=== PATIENT | female | born 1960 | race Caucasian/White ===

== ENCOUNTER → 2017-06-12 | Outpatient (CLI) | payer OTHER | END | disposition home or self-care (01) | LOC: C.LABMFLN 12:26 | PROVIDERS: ATTEND Family Medicine | DX: N39.0 Urinary tract infection, site not specified (principal) ==

== ENCOUNTER → 2017-11-09 | Outpatient (CLI) | payer OTHER ==
[~2017-11-09] MED LIST: ADVIN25/60 INH; ATV/1 PO; BUPRTAB51 PO; CHN/1 PO; DOXY100C76 PO; ESTR10TA3 PV; FLUC150T PO; FURO80TA63 PO; GABA-1220 PO; INSDGIPEN SC; MECL1TAB42 PO; METO100T44 PO; METO5TAB25 PO; OXYC-594 PO; PRVHFAIN INH; QUET1TAB34 PO; SERT-234 PO; SULF800T23 PO; TRAM-10 PO; TRAZ100T29 PO; ULT50X PO; UMEC1INH INH
[2017-11-09 17:46] LABS: BASO % 0.6 %; BASO ABS # 0.08 K/uL (0-0.2); EOS % 2.3 %; EOS ABS # 0.32 K/uL (0-0.5); HEMATOCRIT 44.8 % (37-47); HEMOGLOBIN 13.9 g/dL (12.0-16.0); IG# 0.17 K/uL (0.00-0.02); LYMPH % 22.9 %; MEAN CELL VOLUME 91.1 fL (80-100); MEAN CORPUSCULAR HEMOGLOBIN 28.3 pg (25-34); MEAN PLATELET VOLUME 11.1 fL (7.4-10.4); MONO % 5.9 %; MONO ABS # 0.82 K/uL (0.11-0.59); NEUT % 67.1 %; NEUT ABS # 9.38 K/uL (1.4-6.5); NUCLEATED RED BLOOD CELL ABS 0.02 K/uL (0-0); PLATELET COUNT 481 K/uL (130-400); RED CELL DISTRIBUTION WIDTH CV 15.2 % (11.5-14.5); RED CELL DISTRIBUTION WIDTH SD 50.6 fL (36.4-46.3); WHITE BLOOD COUNT 13.97 K/uL (4.8-10.8)
[2017-11-09 17:59] LABS: PTT PATIENT 25.2 SECONDS (21.0-31.0)
[2017-11-09 18:04] LABS: BLOOD UREA NITROGEN 26 mg/dl (7-18); CALCIUM 9.3 mg/dl (8.5-10.1); CARBON DIOXIDE 37 mmol/L (21-32); CREATININE 1.16 mg/dl (0.60-1.20); GLUCOSE 167 mg/dl (70-99); POTASSIUM 4.2 mmol/L (3.5-5.1); SODIUM 133 mmol/L (136-145)
== END | disposition home or self-care (01) ==
LOC: C.LABMFLN 09:54
PROVIDERS: ATTEND Family Medicine
DX: Z01.818 Encounter for other preprocedural examination (principal); Z01.810 Encounter for preprocedural cardiovascular examination; Z01.812 Encounter for preprocedural laboratory examination

== ENCOUNTER 2017-11-15 07:59 | Day surgery (SDC) | payer OTHER ==
[2017-11-14 08:17] VITALS: BMI 56.0
[2017-11-14 08:30] VITALS: Ht 139.7 cm; Wt 110.0 kg
--- NOTE | 2017-11-14 10:28 | HISTORY & PHYSICAL EXAMINATION ---
DATE OF ADMISSION: 11/15/2017 CHIEF COMPLAINT: Right hand numbness. HISTORY OF PRESENT ILLNESS: This is a 56-year-old female patient of Dr. Howard complaining of chronic right hand numbness and pain. She has been diagnosed with carpal tunnel syndrome. She has failed conservative treatment and wishes to proceed with the right carpal tunnel release. PAST MEDICAL HISTORY: Congestive heart failure, hypertension, hypercholesterolemia, asthma, COPD, sleep apnea, anxiety, peripheral numbness, diabetes mellitus, with insulin, hypothyroidism, rheumatoid arthritis, spine problems, low back pain, acid reflux, obesity, enlarged liver, kidney stones. SOCIAL HISTORY: Nonsmoker and nondrinker. PAST SURGICAL HISTORY: Splenectomy, tonsillectomy, x2. FAMILY HISTORY: Noncontributory. REVIEW OF SYSTEMS: Chronic right hand pain and numbness. Otherwise, denies any shortness of breath, chest pain, nausea, vomiting, or joint complaints. MEDICATIONS: Lorazepam 1 mg 3 times daily as needed, sertraline 100 mg daily, bupropion 300 mg daily, mirtazapine 15 mg at bedtime, quetiapine 100 mg daily, trazodone 150 mg at bedtime, meclizine 25 mg daily, fluconazole 150 mg daily, Yuvafem 10 mcg vaginal tablet twice weekly, furosemide 80 mg daily, metolazone 5 mg daily, metoprolol 100 mg daily, gabapentin 400 mg 3 times daily, Percocet 10/325 as needed, Chantix 1 mg twice daily, Lantus insulin as needed, Cipro 500 mg every 12 hours, Incruse Ellipta 62.5 mcg 1 puff daily, Advair HFA 230 mcg/21 mcg 2 puffs twice daily, Ventolin 90 mcg 2 puffs every 4-6 hours as needed, atorvastatin 40 mg daily, nystatin 100,000 units/g topical powder apply to affected area twice daily, doxycycline 100 mg twice daily. ALLERGIES: PENICILLIN, LOVENOX, OXYCONTIN. PHYSICAL EXAMINATION: GENERAL: Well-developed, well-nourished, obese female, in mild distress with her breathing issues and oxygen. She is alert and oriented x3 and pleasant. HEENT: Normocephalic and atraumatic. Extraocular motions are intact. Pupils are equal and reactive to light. CARDIOVASCULAR: Heart has regular rate and rhythm, no murmurs appreciated. RESPIRATORY: Lungs are clear, with significant decreased breath sounds throughout. There are no wheezes or rales. GASTROINTESTINAL: Abdomen is soft, nontender, obese. Bowel sounds are present. EXTREMITIES: Right hand digits 1 through 3 have decreased sensation. She has full range of motion. Positive Tinel's and Phalen's at the wrist. DIAGNOSES: Congestive heart failure, hypertension, hypercholesterolemia, asthma, chronic obstructive pulmonary disease, sleep apnea, anxiety, peripheral numbness, diabetes, with insulin, hypothyroidism, rheumatoid arthritis, spine problems, lower back pain, acid reflux, obesity, kidney stones, enlarged liver. PLAN: Patient was advised of her diagnoses. Indications, risks, benefits, and postop course have all been reviewed. Patient wished to proceed with the right carpal tunnel release. Necessary consent forms, preoperative testing and clearances will be obtained.
[~2017-11-15] VITALS: Ht 139.7 cm; Wt 110.0 kg
[~2017-11-15 07:59] MED LIST changes: +CLINDAMYCIN 600 MG/54 ML D5W IV SCH; -DOXY100C76 PO; +LACTATED RINGER'S 1000ML 1,000 ML IV SCH; -ULT50X PO
[2017-11-15 08:36] VITALS: BP 158/66; PULSE 78; TEMP 36.9; O2SAT 95
[2017-11-15] MEDS ORDERED: FENTANYL CITRATE INJ 50 MCG/1 ML 2 ML VIAL ONE (08:55)
[2017-11-15] MEDS ORDERED: MIDAZOLAM HCL 1 MG/ML 2ML VIAL ONE (08:55)
[2017-11-15] MEDS ORDERED: PROPOFOL IV EMULSION 10 MG/ML 20 ML VIAL ONE ×2 (08:55→11:06)
[2017-11-15] MEDS ORDERED: LIDOCAINE HCL 2% 2 ML VIAL (20MG/ML) ONE (08:55)
--- NOTE | 2017-11-15 09:03 | History & Physical Bridge Note ---
H&P Re-Evaluation Bridge Note: I have examined the patient, reviewed the History & Physical and in the interval since the performance of the History & Physical I have noted the following changes of clinical significance: No changes noted
[2017-11-15] MEDS ORDERED: EpHEDrine SULFATE INJ 50 MG/ML AMP IV PRN (09:15)
[2017-11-15] MEDS ORDERED: ONDANSETRON INJ 2 MG/ML 2 ML VIAL IV PRN (09:15)
[2017-11-15] MEDS ORDERED: ATROPINE SULFATE 0.1 MG/ML 5ML SYR IV PRN (09:15)
[2017-11-15] MEDS ORDERED: FENTANYL CITRATE INJ 50 MCG/1 ML 2 ML VIAL IV PRN (09:15)
[2017-11-15] MEDS ORDERED: LIDOCAINE HCL 1% 20 ML VIAL ONE (10:51)
[2017-11-15] MEDS ORDERED: SODIUM CHLORIDE 0.9% 1000ML 1,000 ML IV SCH (10:56)
--- NOTE | 2017-11-15 11:04 | Discharge Instructions ---
Discharge Instructions Date of Service Nov 15, 2017. Admission Reason for Admission: Right Wrist Carpal Tunnel Syndrome Discharge Discharge Diagnosis / Problem: Right Carpal tunnel release Discharge Goals Goal(s): Improve function Activity Recommendations Activity Limitations: as noted below . Instructions / Follow-Up Instructions / Follow-Up Keep dressings clean, dry and in tact...do not remove. May move and wiggle fingers, no lifting with the hand. Elevate as needed. Follow up with Dr. Howard or his nurse for a dressing change MondayNovember 21, call [phone] for appt. Current Hospital Diet Patient's current hospital diet: Discharge Diet Recommended Diet: AHA Diet (Heart Healthy), Diabetes Type 2 Diet Pending Studies Studies pending at discharge: no Laboratory Results Hemoglobin A1c Test 09/21/17 12:21 Range/Units Estimated Average Glucose 240 mg/dl Hemoglobin A1c 10.0 H 4.5-5.6 % Medical Emergencies . Who to Call and When: Medical Emergencies: If at any time you feel your situation is an emergency, please call 911 immediately. . Non-Emergent Contact Non-Emergency issues call your: Primary Care Provider . "Provider Documentation" section prepared by Mark Avitia. .
[2017-11-15] MEDS ORDERED: ULT50X PO ×2 (11:05→11:10)
[2017-11-15] MEDS ORDERED: ONDANSETRON INJ 2 MG/ML 2 ML VIAL ONE (11:08)
--- NOTE | 2017-11-15 11:34 | [facility] Post Operative Brief Note ---
Immediate Operative Summary Operative Date Nov 15, 2017. Pre-Operative Diagnosis Right hand numbness,carpal tunnel syndrome Post-Operative Diagnosis Right hand numbness,carpal tunnel syndrome Procedure(s) Performed Right Wrist Carpal Tunnel Release Surgeon Dr. Howard Cafeteria Or Lunchroom Checker Surgeon(s) none Estimated Blood Loss 1 cc Findings Consistent with Post-Op Diagnosis Specimens none per surgeon Drains None Anesthesia Type MAC Complication(s) none Disposition Accompanied Pt To Recover: no Disposition: Recovery Room / PACU Overlapping Procedure I was immediately available: during the entire case
[2017-11-15 12:17] VITALS: BP 122/68; PULSE 77; TEMP 37.4; O2SAT 92
[2017-11-15] MEDS ORDERED: TRAMADOL HCL 50 MG TAB ONE (12:41)
--- NOTE | 2017-11-15 12:44 | OPERATIVE REPORT ---
DATE OF OPERATION: 11/15/2017 INDICATION FOR PROCEDURE: Patient is a 56-year-old female who has bilateral hand numbness. She has EMG documented carpal tunnel syndrome. She also has several health issues. At this time, she is scheduled for right carpal tunnel release. PREOPERATIVE DIAGNOSIS: Right carpal tunnel syndrome. POSTOPERATIVE DIAGNOSIS: Same. PROCEDURE: Right carpal tunnel release. SURGEON: Abdelrahman Howard MD. TRUCK SUPERVISOR: None. ANESTHESIA: Local infiltration and IV sedation. DRAINS: None. SPECIMENS: None. ESTIMATED BLOOD LOSS: 1 mL or less. OPERATIVE PROCEDURE: Patient was brought to the operating room and placed supine on the operating room table. She had IV sedation per anesthesia. Pneumatic tourniquet was placed on the right upper arm. Right upper extremity had 1% lidocaine median nerve incisional block to the right wrist and palm. Right upper extremity was sterilely prepped and draped with ChloraPrep. The arm was elevated and exsanguinated with Esmarch bandage. Pneumatic tourniquet was raised to 250 mmHg. Incision was made in the right palm in line with the inner space between the long and ring fingers. Extended from just proximal to the webspace of the thumb proximally to distal wrist flexion crease. Skin was incised sharply. Subcutaneous flaps were elevated. Subcutaneous bleeders were cauterized. Superficial palmar fascia was split longitudinally, reflected off the transverse carpal ligament. Transverse carpal ligament was identified, and a blunt freer elevator was placed between the median nerve and the transverse carpal ligament, and transverse carpal ligament was divided from distal to proximal completely. Then, under direct visualization, the flexor retinaculum was released across level of the wrist. The nerve was fully decompressed. Some of the thickened epineurium was released. The nerve had a central vessel noted, had normal distal branches of the nerve. There were no anomalies. The nerve did not show any vascular changes or flattening. The wound was irrigated, and the skin was closed with interrupted 3-0 nylon vertical mattress sutures. Sterile dressings applied. The volar splint was covered with a bandage for support. Tourniquet was let down prior to splinting. Patient's capillary refill was normal. Packed all digits. The patient had minimal blood loss, and she tolerated the procedure well. I attest to the content of the Intraoperative Record and any orders documented therein. Any exception s are noted below.
[2017-11-15] MEDS ORDERED: NURSING VERBAL MED ORDER ONE (12:45)
[2017-11-15 12:50] VITALS: BP 129/65; PULSE 73; O2SAT 92
[2017-11-15 13:20] VITALS: BP 129/65; PULSE 77; TEMP 36.9; O2SAT 92
--- NOTE | 2017-11-15 16:08 | Anesthesiology Progress Note ---
Anesthesia Post Op Note Date & Time Nov 15, 2017 at 16:08 Vital Signs Pain Intensity: 4 Vital Signs Past 12 Hours Date Time Temp Pulse Resp B/P (MAP) Pulse Ox O2 Delivery O2 Flow Rate FiO2 11/15/17 13:20 36.9 77 20 129/65 92 Nasal Cannula 2 11/15/17 12:50 73 20 129/65 92 Nasal Cannula 2 11/15/17 12:17 37.4 77 20 122/68 92 Nasal Cannula 2 11/15/17 12:12 36.6 91 Nasal Cannula 2 11/15/17 12:08 73 14 91 11/15/17 12:08 73 14 11/15/17 12:06 118/70 11/15/17 12:03 72 15 90 11/15/17 12:03 72 15 11/15/17 12:02 70 13 90 11/15/17 12:02 70 13 11/15/17 12:00 121/67 11/15/17 11:57 71 12 11/15/17 11:57 71 12 92 11/15/17 11:56 108/77 11/15/17 11:53 72 15 91 11/15/17 11:53 72 15 11/15/17 11:51 123/64 11/15/17 11:48 73 13 91 11/15/17 11:48 73 13 11/15/17 11:45 128/69 11/15/17 11:43 71 19 92 11/15/17 11:43 72 19 11/15/17 11:41 125/71 11/15/17 11:39 120/82 11/15/17 11:38 76 22 11/15/17 11:38 36.8 75 16 120/82 93 Nasal Cannula 4 11/15/17 11:38 76 22 90 11/15/17 08:36 36.9 78 20 158/66 (96) 95 Nasal Cannula 2 Notes Mental Status: alert / awake / arousable, participated in evaluation Pt Amnestic to Procedure: Yes Nausea / Vomiting: adequately controlled Pain: adequately controlled Airway Patency, RR, SpO2: stable & adequate BP & HR: stable & adequate Hydration State: stable & adequate Anesthetic Complications: no major complications apparent
== END 2017-11-15 13:20 | disposition home or self-care (01) ==
LOC: C.ACU 07:59
PROVIDERS: ATTEND Orthopaedic Surgery Sports Medicine
DX: G56.01 Carpal tunnel syndrome, right upper limb (principal); J45.909 Unspecified asthma, uncomplicated; J44.9 Chronic obstructive pulmonary disease, unspecified; G47.33 Obstructive sleep apnea (adult) (pediatric); I11.0 Hypertensive heart disease with heart failure; I25.10 Atherosclerotic heart disease of native coronary artery without angina pectoris; I50.32 Chronic diastolic (congestive) heart failure; E11.9 Type 2 diabetes mellitus without complications; Z88.0 Allergy status to penicillin; Z88.5 Allergy status to narcotic agent; E78.00 Pure hypercholesterolemia, unspecified; Z79.4 Long term (current) use of insulin; E03.9 Hypothyroidism, unspecified; Z79.899 Other long term (current) drug therapy; E78.5 Hyperlipidemia, unspecified; Z87.891 Personal history of nicotine dependence; Z79.82 Long term (current) use of aspirin; E66.01 Morbid (severe) obesity due to excess calories; Z68.43 Body mass index [BMI] 50.0-59.9, adult; F41.9 Anxiety disorder, unspecified; F32.9 Major depressive disorder, single episode, unspecified